=== PATIENT | male | born 1985 | race Caucasian/White ===

== ENCOUNTER 2017-11-26 15:25 | Emergency (ER) | payer BC, OTHER ==
[~2017-11-26] VITALS: Ht 172.7 cm; Wt 68.0 kg
--- OUTSIDE RECORDS SUMMARY | 2017-11-26 15:30 | XMS REPORT ---
Author REJI Del [facility]ario [facility] Address [address] [place], [place] [address] Care Team Providers Care Motor Vehicle Examiner Name Role Phone REJI PALACIOS PCP Unavailable Allergies and Adverse Reactions Name Reaction Notes NO KNOWN DRUG ALLERGIES Plan of Treatment Planned Activity Comments Planned Date Planned Time Plan/Goal Injection, Subcutaneous/IM 04/24/2016 12:00 AM Medications Active Name Start Date Estimated Completion Date SIG Comments Cipro 500 mg oral tablet 11/07/2012 take 1 tablet (500 mg) by oral route 2 times per day promethazine-codeine 6.25-10 mg/5 mL oral syrup 04/25/2016 take 5 milliliters by oral route every 4 hours as needed, not to exceed 30 mL in 24 hours Problem List Description Status Onset NO SIGNIFICANT MEDICAL HX GIVEN Active Vital Signs Date Time BP-Sys(mm[Hg] BP-America(mm[Hg]) HR(bpm) RR(rpm) Temp WT HT HC BMI BSA BMI Percentile O2 Sat(%) 04/24/2016 10:50:00 AM 118 mmHg 60 mmHg 64 bpm 16 rpm 98.2 F 146 lbs 68 in 22.20 kg/m2 1.78 m2 99 % 11/07/2012 10:19:00 AM 122 mmHg 68 mmHg 88 bpm 16 rpm 98.2 F 150 lbs 68 in 22.8072 kg/m 1.8068 m 98 % 11/19/2011 9:13:00 AM 120 mmHg 60 mmHg 76 bpm 151 lbs 68 in 22.96 kg/m2 1.81 m2 04/02/2011 10:29:00 AM 112 mmHg 70 mmHg 84 bpm 152 lbs 68 in 23.1113 kg/m 1.8188 m Social History Name Description Comments Tobacco Never smoker History of Procedures Date Ordered Description Order Status 04/02/2011 12:00 AM THER/PROPH/DIAG INJ SC/IM Reviewed 04/02/2011 12:00 AM Decadron Inj.1mg-([facility]) [facility] #[id number] Reviewed 04/02/2011 12:00 AM Depo-Medrol 80 Mg Im/St Trevon [facility] [id number] Reviewed 04/02/2011 12:00 AM Rocephin, Per 250MG - 1 Gram Vial [facility] [id number] Trevon Reviewed 11/07/2012 12:00 AM THER/PROPH/DIAG INJ SC/IM Reviewed 11/07/2012 12:00 AM Decadron, Per 1 Mg [facility]# [id number] Reviewed 11/07/2012 12:00 AM Depo-Medrol, Per 80 Mg [facility]#[id number] Reviewed 11/07/2012 12:00 AM Rocephin 1 gram [facility]#[id number] Reviewed Results Summary Not available. History Of Immunizations Not available. History of Past Illness Name Date of Onset Comments NO SIGNIFICANT MEDICAL HX GIVEN Cough Apr 02 2011 10:31AM Bronchitis, Acute Apr 02 2011 10:31AM Follow-Up Examination Nov 19 2011 9:17AM Late effect of fracture of skull and face bones Nov 19 2011 9:17AM Cough Nov 07 2012 10:22AM Pharyngitis, Acute Nov 07 2012 10:22AM Upper Respiratory Infection Nov 07 2012 10:22AM Moderate Acute Cough Apr 24 2016 10:51AM Acute bronchitis, unspecified organism Apr 24 2016 10:51AM Moderate Acute Chest congestion Apr 24 2016 10:51AM Payers Insurance Name Company Name Plan Name Plan Number Policy Number Policy Group Number Start Date BCBS [facility] [id number] N/A [employer] [id number] N/A History of Encounters Visit Date Visit Type Provider 04/24/2016 Office visit REJI HART 11/07/2012 Office visit REJI HART 11/19/2011 Office visit REJI HART 04/02/2011 Office visit REJI HART 03/04/2009 Office visit Reji Palacios PA-C 03/01/2009 Office visit Reji Palacios PA-C
--- OUTSIDE RECORDS SUMMARY | 2017-11-26 15:30 | XMS REPORT ---
Author Author REJI RODRÍGUEZ [facility] Address [address] [place], [place] [address] Care Team Providers Care Senior Qa Analyst Name Role Phone REJI RODRÍGUEZ PCP REJI RODRÍGUEZ PreferredProvider Allergies and Adverse Reactions Name Reaction Notes NO KNOWN DRUG ALLERGIES Plan of Treatment Planned Activity Comments Planned Date Planned Time Plan/Goal Injection, Subcutaneous/IM 11/09/2017 12:00 AM Medications Active Name Start Date Estimated Completion Date SIG Comments fluticasone 50 mcg/actuation nasal spray,suspension 03/19/2017 spray 1 - 2 sprays (50 - 100 mcg) in each nostril by intranasal route once daily as needed promethazine-codeine 6.25-10 mg/5 mL oral syrup 06/14/2017 take 5 milliliters by oral route every 4 hours as needed, not to exceed 30 mL in 24 hours Bactrim DS 800-160 mg oral tablet 11/09/2017 12/09/2017 take 1 tablet by oral route 2 times a day for 30 days prednisone 20 mg oral tablet 11/09/2017 4 x 2 days, 3 x 2 days, 2 x 2 days 1 x 2 days Discontinued Name Start Date Discontinued Date SIG Comments Cipro 500 mg oral tablet 11/07/2012 03/22/2017 take 1 tablet (500 mg) by oral route 2 times per day triamcinolone acetonide 0.1 % topical cream 03/19/2017 06/15/2017 apply a thin layer to the affected area(s) by topical route 2 times per day Problem List Description Status Onset NO SIGNIFICANT MEDICAL HX GIVEN Active Vital Signs Date Time BP-Sys(mm[Hg] BP-America(mm[Hg]) HR(bpm) RR(rpm) Temp WT HT HC BMI BSA BMI Percentile O2 Sat(%) 11/09/2017 3:44:00 PM 118 mmHg 64 mmHg 88 bpm 18 rpm 97.4 F 151 lbs 68 in 22.9592 kg/m 1.8128 m 98 % 06/14/2017 4:21:00 PM 102 mmHg 70 mmHg 86 bpm 18 rpm 98.7 F 155 lbs 68 in 23.57 kg/m2 1.84 m2 96 % 03/18/2017 3:24:00 PM 118 mmHg 60 mmHg 104 bpm 16 rpm 98.4 F 152 lbs 68 in 23.11 kg/m2 1.82 m2 96 % 04/24/2016 10:50:00 AM 118 mmHg 60 mmHg 64 bpm 16 rpm 98.2 F 146 lbs 68 in 22.199 kg/m 1.7825 m 99 % 11/07/2012 10:19:00 AM 122 mmHg 68 mmHg 88 bpm 16 rpm 98.2 F 150 lbs 68 in 22.81 kg/m2 1.81 m2 98 % 11/19/2011 9:13:00 AM 120 mmHg 60 mmHg 76 bpm 151 lbs 68 in 22.9592 kg/m 1.8128 m 04/02/2011 10:29:00 AM 112 mmHg 70 mmHg 84 bpm 152 lbs 68 in 23.11 kg/m2 1.82 m2 Social History Name Description Comments Tobacco Never smoker History of Procedures Date Ordered Description Order Status 04/02/2011 12:00 AM THER/PROPH/DIAG INJ SC/IM Reviewed 04/02/2011 12:00 AM Decadron Inj.1mg-(JosuéTrevon) [facility] #[id number] Reviewed 04/02/2011 12:00 AM Depo-Medrol 80 Mg Im/ Trevon [facility] [id number] Reviewed 04/02/2011 12:00 AM Rocephin, Per 250MG - 1 Gram Vial [facility] [id number] Paul Reviewed 04/24/2016 12:00 AM THER/PROPH/DIAG INJ SC/IM Reviewed 04/24/2016 12:00 AM Decadron 8mg Injection Reviewed 04/24/2016 12:00 AM Depo-Medrol 80mg Injection Reviewed 04/24/2016 12:00 AM Rocephin 1 gram Injection Reviewed 03/18/2017 12:00 AM THER/PROPH/DIAG INJ SC/IM Reviewed 03/18/2017 12:00 AM Decadron 8mg Injection Reviewed 03/18/2017 12:00 AM Depo-Medrol 80mg Injection Reviewed 06/14/2017 12:00 AM THER/PROPH/DIAG INJ SC/IM Reviewed 06/14/2017 12:00 AM Decadron 8mg Injection Reviewed 06/14/2017 12:00 AM Depo-Medrol 80mg Injection Reviewed 11/07/2012 12:00 AM THER/PROPH/DIAG INJ SC/IM Reviewed 11/07/2012 12:00 AM Decadron, Per 1 Mg [facility]# [id number] Reviewed 11/07/2012 12:00 AM Depo-Medrol, Per 80 Mg [facility]#[id number] Reviewed 11/07/2012 12:00 AM Rocephin 1 gram [facility]#[id number] Reviewed Results Summary Not available. History Of [...] Acute Chest congestion Apr 24 2016 10:51AM Acute pharyngitis, unspecified etiology Mar 18 2017 3:25PM Purulent postnasal drainage Mar 18 2017 3:25PM Sinus pressure Mar 18 2017 3:25PM Acute seasonal allergic rhinitis, unspecified trigger Mar 18 2017 3:25PM Cough Jun 14 2017 4:21PM Chest congestion Jun 14 2017 4:21PM Upper respiratory tract infection, unspecified type Jun 14 2017 4:21PM Moderate Acute Pityriasis Rosea Jun 14 2017 4:21PM Purulent postnasal drainage Nov 09 2017 3:45PM Severe Chronic Recurrent Sinus pressure Nov 09 2017 3:45PM Acute seasonal allergic rhinitis, unspecified trigger Nov 09 2017 3:45PM Acute recurrent sinusitis, unspecified location Nov 09 2017 3:45PM Sinus headache Nov 09 2017 3:45PM Payers Insurance Name Company Name Plan Name Plan Number Policy Number Policy Group Number Start Date BCBS [facility] [id number] Tuesday, 2016 [employer] [id number] N/A BCBS [facility] [id number] N/A History of Encounters Visit Date Visit Type Provider 11/09/2017 Office visit REJI HART 06/14/2017 Voided REJI HART 06/14/2017 Office visit REJI HART 03/18/2017 Office visit REJI HART 04/24/2016 Office visit REJI HART 11/07/2012 Office visit REJI HART 11/19/2011 Office visit REJI HART 04/02/2011 Office visit REJI HART 03/04/2009 Office visit Reji Rodríguez PA-C 03/01/2009 Office visit Reji Rodríguez PA-C
--- OUTSIDE RECORDS SUMMARY | 2017-11-26 15:30 | XMS REPORT ---
Author Author REJI RODRÍGUEZ [facility] Address [address] [place], [place] [address] Care Team Providers Care Photostatic Copy Maker Name Role Phone REJI RODRÍGUEZ PCP Allergies and Adverse Reactions Name Reaction Notes NO KNOWN DRUG ALLERGIES Plan of Treatment Not available. Medications Active Name Start Date Estimated Completion Date SIG Comments promethazine-codeine 6.25-10 mg/5 mL oral syrup 04/25/2016 take 5 milliliters by oral route every 4 hours as needed, not to exceed 30 mL in 24 hours prednisone 20 mg oral tablet 03/19/2017 4 x 2 days, 3 x 2 days, 2 x 2 days 1 x 2 days fluticasone 50 mcg/actuation nasal spray,suspension 03/19/2017 spray 1 - 2 sprays (50 - 100 mcg) in each nostril by intranasal route once daily as needed triamcinolone acetonide 0.1 % topical cream 03/19/2017 apply a thin layer to the affected area(s) by topical route 2 times per day Discontinued Name Start Date Discontinued Date SIG Comments Cipro 500 mg oral tablet 11/07/2012 03/22/2017 take 1 tablet (500 mg) by oral route 2 times per day Problem List Description Status Onset NO SIGNIFICANT MEDICAL HX GIVEN Active Vital Signs Date Time BP-Sys(mm[Hg] BP-America(mm[Hg]) HR(bpm) RR(rpm) Temp WT HT HC BMI BSA BMI Percentile O2 Sat(%) 03/18/2017 3:24:00 PM 118 mmHg 60 mmHg [...] SC/IM Reviewed 04/02/2011 12:00 AM Decadron Inj.1mg-([facility]) [facility] #[id number] Reviewed 04/02/2011 12:00 AM Depo-Medrol 80 Mg Im/St Trevon [facility] [id number] Reviewed 04/02/2011 12:00 AM Rocephin, Per 250MG - 1 Gram Vial [facility] [id number]-Hn Paul Reviewed 04/24/2016 12:00 AM THER/PROPH/DIAG INJ SC/IM Reviewed 04/24/2016 12:00 AM Decadron 8mg Injection Reviewed 04/24/2016 12:00 AM Depo-Medrol 80mg Injection Reviewed 04/24/2016 12:00 AM Rocephin 1 gram Injection Reviewed 03/18/2017 12:00 AM THER/PROPH/DIAG INJ SC/IM Reviewed 03/18/2017 12:00 AM Decadron 8mg Injection Reviewed 03/18/2017 12:00 AM Depo-Medrol 80mg Injection Reviewed 11/07/2012 12:00 AM THER/PROPH/DIAG INJ SC/IM Reviewed 11/07/2012 12:00 AM Decadron, Per 1 Mg [facility]# [id number] Reviewed 11/07/2012 12:00 AM Depo-Medrol, Per 80 Mg [facility]#[id number] Reviewed 11/07/2012 12:00 AM Rocephin 1 gram [facility]#[id number] Reviewed Results Summary Not available. History Of [...] rhinitis, unspecified trigger Mar 18 2017 3:25PM Payers Insurance Name Company Name Plan Name Plan Number Policy Number Policy Group Number [id number] Tuesday, 2016 [employer] [id number] N/A [facility] [id number] N/A History of Encounters Visit Date Visit Type Provider 03/18/2017 Office visit REJI HART 04/24/2016 Office visit REJI HART 11/07/2012 Office visit REJI HART 11/19/2011 Office visit REJI HART 04/02/2011 Office visit REJI HART 03/04/2009 Office visit Reji Rodríguez PA-C 03/01/2009 Office visit Reji Rodríguez PA-C
--- OUTSIDE RECORDS SUMMARY | 2017-11-26 15:30 | XMS REPORT ---
Author Author REJI RODRÍGUEZ [facility] Address [address] [place], [place] [address] Care Team Providers Care Interactive Project Manager Name Role Phone REJI RODRÍGUEZ PCP REJI RODRÍGUEZ PreferredProvider Allergies and Adverse Reactions Name Reaction Notes NO KNOWN DRUG ALLERGIES Plan of Treatment Not available. Medications Active Name Start Date Estimated Completion Date SIG Comments fluticasone 50 mcg/actuation nasal spray,suspension 03/19/2017 spray 1 - 2 sprays (50 - 100 mcg) in each nostril by intranasal route once daily as needed prednisone 20 mg oral tablet 06/14/2017 4 x 2 days, 3 x 2 days, 2 x 2 days 1 x 2 days promethazine-codeine 6.25-10 mg/5 mL oral syrup 06/14/2017 take 5 milliliters by oral route every 4 hours as needed, not to exceed 30 mL in 24 hours Discontinued Name Start Date Discontinued Date SIG [...] HC BMI BSA BMI Percentile O2 Sat(%) 06/14/2017 4:21:00 PM 102 mmHg 70 mmHg 86 bpm 18 rpm 98.7 F 155 lbs 68 in 23.57 kg/m2 1.84 m2 96 % 03/18/2017 3:24:00 PM 118 mmHg 60 mmHg 104 bpm 16 rpm 98.4 F 152 lbs 68 in 23.1113 kg/m 1.8188 m 96 % 04/24/2016 10:50:00 AM 118 mmHg [...] SC/IM Reviewed 04/02/2011 12:00 AM Decadron Inj.1mg-([facility]) [facility] #[id number] Reviewed 04/02/2011 12:00 AM Depo-Medrol 80 Mg Im/St Trevon [facility] [id number] Reviewed 04/02/2011 12:00 AM Rocephin, Per 250MG - 1 Gram Vial [facility] [id number]-Dm Paul Reviewed 04/24/2016 12:00 AM THER/PROPH/DIAG INJ [...] 11/07/2012 12:00 AM Decadron, Per 1 Mg [facility]# [id number] Reviewed 11/07/2012 12:00 AM Depo-Medrol, Per 80 Mg [facility]#[id number] Reviewed 11/07/2012 12:00 AM Rocephin 1 gram [facility]#4146-1487-92 Reviewed Results Summary Not available. History Of [...] Acute Pityriasis Rosea Jun 14 2017 4:21PM Payers Insurance Name Company Name Plan Name Plan Number Policy Number Policy Group Number Start Date BCBS [facility] [id number] Tuesday, 2016 [employer] [id number] N/A BCBS [facility] [id number] N/A History of Encounters Visit Date Visit Type Provider 06/14/2017 Office visit REJI HART 06/14/2017 Office visit REJI HART 03/18/2017 Office visit REJI HART 04/24/2016 Office visit REJI HART 11/07/2012 Office visit REJI HART 11/19/2011 Office visit REJI HART 04/02/2011 Office visit REJI HART 03/04/2009 Office visit Reji Rodríguez PA-C 03/01/2009 Office visit Reji Rodríguez PA-C
--- OUTSIDE RECORDS SUMMARY | 2017-11-26 15:31 | XMS REPORT ---
Author Author MICKEY SOW [facility] Address [address] [place] [address] Phone Unavailable Care Team Providers Care Senior Infrastructure Engineer Name Role Phone MICKEY SOW Unavailable Unavailable PROBLEMS Unknown Problems ALLERGIES No Known Allergies ENCOUNTERS Encounter Location Date Diagnosis [facility] [address] [facility] [id number] [address] 17 May, 2017 Cough R05 ; Viral upper respiratory tract infection J06.9 and Rash R21 IMMUNIZATIONS Vaccine Route Administration Date Status DEXAMETHASONE 4MG/ML (PER 1 MG) IM Intramuscular Jun 05, 2017 Administered DEPO MEDROL 40 MG/ML IM Intramuscular Jun 05, 2017 Administered SOCIAL HISTORY Never Assessed REASON FOR VISIT Sinus congestion, runny nose, dry cough for several weeks. Rash on torso and arms x3 days. [facility] PLAN OF CARE Activity Details Follow Up prn cough and congestion Reason: VITAL SIGNS Height 68 in 2017-06-05 Weight 155 lbs 2017-06-05 Temperature 98.2 degrees Fahrenheit 2017-06-05 Heart Rate 70 bpm 2017-06-05 Respiratory Rate 20 2017-06-05 BMI 23.57 kg/m2 2017-06-05 Blood pressure systolic 110 mmHg 2017-06-05 Blood pressure diastolic 76 mmHg 2017-06-05 MEDICATIONS Medication Instructions Dosage Frequency Start Date End Date Duration Status Promethazine-DM 6.25-15 MG/5ML Orally as directed 5 ml at HS May, May, 07 days Active Flonase Active Robitussin 12 Hour Cough Active Excedrin Migraine Active RESULTS Name Result Date Reference Range STREP A (IN HOUSE) 2017-06-05 STREP A negative Control + Lot # [id number] Exp date 01/16/2018 Xray : Chest 2 View (IN HOUSE) 2017-06-05 PROCEDURES Procedure Date Ordered Result Body Site X-RAY EXAM CHEST 2 VIEWS Jun 05, 2017 THER/PROPH/DIAG INJ, SC/IM Jun 05, 2017 DEPO MEDROL 40 MG/ML Jun 05, 2017 STREP A ASSAY W/OPTIC Jun 05, 2017 DEXAMETHASONE 4MG/ML (PER 1 MG) Jun 05, 2017 INSTRUCTIONS MEDICATIONS ADMINISTERED No Known Medications
--- OUTSIDE RECORDS SUMMARY | 2017-11-26 15:31 | XMS REPORT | Continuity of Care Document ---
Author Author [facility] Organization [facility] Address Unknown Phone Unavailable Allergies There is no data. Medications There is no data. Problems There is no data. Procedures There is no data. Results There is no data. Encounters ACCT No. Visit Date/Time Discharge Status Pt. Type Provider Facility Loc./Unit Complaint [id number] 11/09/2017 14:44:38 11/09/2017 23:59:59 [facility] Outpatient DENIA PALACIOS [id number] 06/14/2017 14:35:04 06/14/2017 23:59:59 [facility] Outpatient DENIA PALACIOS [id number] 06/14/2017 14:28:18 06/14/2017 23:59:59 [facility] Out[facility] DENIA PALACIOS [id number] 03/18/2017 14:28:17 03/18/2017 23:59:59 [facility] Outpatient DENIA PALACIOS [id number] 04/24/2016 10:21:38 04/24/2016 23:59:59 [facility] Outpatient DENIA PALACIOS [id number] 06/05/2017 11:25:00 06/05/2017 23:59:59 [facility] Outpatient BRUCE CHAND ABIGAIL[employer]ftab [facility]
[2017-11-26] MEDS ORDERED: ACETAMINOPHEN 500 MG TAB (TYLENOL) PO ONE (15:45)
[2017-11-26] MEDS ORDERED: NS IV 1000 ML 1,000 ML IV SCH (15:45)
--- NOTE | 2017-11-26 15:52 | ED General ---
General Stated Complaint: RASH/COUGH/BODY ACHES Source of Information: Patient Exam Limitations: No Limitations History of Present Illness Date Seen by Provider: Nov 26, 2017 Time Seen by Provider: 15:43 Initial Comments Patient is a 32-year-old male presents to the emergency room with complaints of generalized body aches, fevers, cough, and a rash all over his body for one week. He reports that he has been seen by urgent care in [place], [place] yesterday and they advised him to go to the emergency room in [place] but he lives closer to the [facility] and decided to come home and go today. He has recently been seen by Esteban Rodríguez in [employer] and recently just finished a prescription for Bactrim and prednisone for an upper respiratory infection. He reports that he's also had numerous tick bites this summer. Timing/Duration: 6-7 Days, 1 Week Associated Systoms: No Chest Pain; Cough, Fever/Chills, Headaches, Loss of Appetite, Malaise, Rash; No Seizure, No Shortness of Air, No Syncope Allergies and Home Medications Allergies Coded Allergies: No Known Drug Allergies (Unverified , 11/26/17) Home Medications Benzonatate 100 Mg Capsule, 100 MG PO TID PRN for COUGH Prescribed by: ARACELY BENÍTEZ on 11/26/171826 Doxycycline Hyclate 100 Mg Capsule, 100 MG PO BID Prescribed by: ARACELY BENÍTEZ on 11/26/171815 Prednisone 20 Mg Tab, 40 MG PO DAILY Prescribed by: ARACELY BENÍTEZ on 11/26/171815 Patient Home Medication List Home Medication List Reviewed: Yes Review of Systems Constitutional: see HPI, chills, fever, malaise EENTM: see HPI, throat pain; No throat swelling Respiratory: see HPI, cough, phlegm Musculoskeletal: see HPI, muscle pain, muscle weakness, other Skin: see HPI (generalized body aches), rash All Other Systems Reviewed Negative Unless Noted: Yes Past Wpkcqns-Vvvpzh-Ofjven Hx Past Med/Social Hx: Reviewed Nursing Past Med/Soc Hx Patient Social History Recent Foreign Travel: No Contact w/Someone Who Travel: No Family Medical History Reviewed Nursing Family Hx Physical Exam Vital Signs Vital Signs - First Documented 11/26/17 11/26/17 15:30 18:29 Temp 102.7 Pulse 103 Resp 22 B/P (MAP) 108/66 (80) Pulse Ox 94 O2 Delivery Room Air Capillary Refill : Height, Weight, BMI Height: '" Weight: lbs. oz. kg; BMI Method: General Appearance: No Apparent Distress, WD/WN HEENT: PERRL/EOMI, TMs Normal, Normal ENT Inspection, Pharynx Normal Neck: Full Range of Motion, Normal Inspection, Non Tender, Supple Respiratory: Chest Non Tender, Lungs Clear, Normal Breath Sounds, No Accessory Muscle Use, No Respiratory Distress Gastrointestinal: Normal Bowel Sounds, No Organomegaly, No Pulsatile Mass, Non Tender, Soft Neurologic/Psychiatric: Alert, Oriented x3, No Motor/Sensory Deficits Skin: Warm/Dry, Rash (fine macular rash all of body. ) Lymphatic: No Adenopathy Focused Exam Lactate Level 11/26/17 15:45: Lactic Acid Level 1.58 Lactic Acid Level Progress/Results/Core Measures Suspected Sepsis SIRS Temperature: Pulse: Respiratory Rate: Laboratory Tests 11/26/17 15:45: White Blood Count 2.5L Blood Pressure / Mean: 11/26/17 15:45: Lactic Acid Level 1.58 Laboratory Tests 11/26/17 15:45: Creatinine 0.81, INR Comment 1.1, Platelet Count 48L, Total Bilirubin 0.6 Results/Orders Lab Results My Orders Orders - ARACELY BENÍTEZ Urine Culture (11/26/17 15:40) Medications Given in ED Vital Signs/I&O Capillary Refill : Progress Note : Progress Note I have seen and evaluated the patient. I have informed him of laboratory and imaging studies. With the patient frequent tick bites this summer I feel that this could be a tick born illness. Viral illness also can not be excluded. He agrees with plans of care, close follow up with PCP, and return precautions. Diagnostic Imaging Diagonstic Imaging: Xray Plain Films/CT/US/NM/MRI: chest Comments NAME: TANYA MON MED REC#: [id number] PT STATUS: REG ER : 1985 PHYSICIAN: ARACELY BENÍTEZ ADMIT DATE: 11/26/17/ER Signed Date of Exam: 11/26/17 CHEST 1 VIEW, AP/PA ONLY Clinical indication: Patient with rash, cough, body aches. Exam: Portable chest x-ray upright view. Comparisons: None. Findings: Lungs/pleura: Lungs are clear. There is no pneumothorax. There is no pleural effusion. Mediastinum: Unremarkable. Pulmonary vasculature: Unremarkable. Heart: Unremarkable. Bones/extrathoracic soft tissue: Unremarkable. Impression: There is no radiographic evidence of acute cardiopulmonary process. Dictated by: Dictated on workstation # [id number] Dict: 11/26/17 1631 Trans: 11/26/171706 Interpreted by: BRE MALONE MD Electronically signed by: BRE MALONE MD 11/26/171706 Reviewed: Reviewed by Me Departure Impression Primary Impression: Tick-borne disease Additional Impression: Viral illness Disposition: HOME, SELF-CARE Condition: Stable/Unchanged Departure-Patient Inst. Decision time for Depature: 18:07 Referrals: UNKNOWN (PCP/Family) Primary Care Physician Patient Instructions: VIRAL RESP ILLNESS-ADULT Add. Discharge Instructions: Take medication as directed. You may take ibuprofen as directed by the bottle for fever. If you are unable to break the fever you may add Tylenol as directed by the bottle. Follow-up with Esteban Rodríguez within 1 week for recheck. Avoid direct sunlight as you will burn on this medication. Return back to the emergency room for any worsening symptoms, fever, pain, or any other concerns as needed. Scripts Benzonatate (Tessalon Perle) 100 Mg Capsule 100 MG PO TID PRN for COUGH, #10 CAP Prov: ARACELY BENÍTEZ 11/26/17 Doxycycline Hyclate (Doxycycline Hyclate) 100 Mg Capsule 100 MG PO BID for 10 Days, #14 CAP Prov: ARACELY BENÍTEZ 11/26/17 Prednisone (Prednisone) 20 Mg Tab 40 MG PO DAILY for 5 Days, #10 TAB Prov: ARACELY BENÍTEZ 11/26/17 ARACELY BENÍTEZ Nov 26, 2017 15:52
[2017-11-26 16:05] LABS: BASOPHILS % (AUTO) 1 % (0-10); EOSINOPHILS % (AUTO) 2 % (0-10); HEMATOCRIT 42 % (40-54); HEMOGLOBIN 14.7 G/DL (13.3-17.7); LYMPHOCYTES # (AUTO) 0.7 X 10^3 (1.0-4.0); LYMPHOCYTES % (AUTO) 30 % (12-44); MEAN CORPUSCULAR HEMOGLOBIN 31 PG (25-34); MEAN CORPUSCULAR HGB CONC 35 G/DL (32-36); MEAN CORPUSCULAR VOLUME 88 FL (80-99); MEAN PLATELET VOLUME 12.9 FL (7.4-10.4); MONOCYTES # (AUTO) 0.2 X 10^3 (0.0-1.0); MONOCYTES % (AUTO) 9 % (0-12); NEUTROPHILS # (AUTO) 1.5 X 10^3 (1.8-7.8); NEUTROPHILS % (AUTO) 59 % (42-75); PLATELET COUNT 48 10^3/uL (130-400); RED BLOOD COUNT 4.75 10^6/uL (4.35-5.85); RED CELL DISTRIBUTION WIDTH 12.8 % (10.0-14.5); WHITE BLOOD COUNT 2.5 10^3/uL (4.3-11.0)
[2017-11-26 16:10] LABS: CLARITY,URINE CLEAR; COLOR,URINE YELLOW; GLUCOSE, URINE (UA) NEGATIVE (NEGATIVE); KETONES,URINE NEGATIVE (NEGATIVE); LEUKOCYTE ESTERASE ,URINE 1+ (NEGATIVE); NITRITE,URINE NEGATIVE (NEGATIVE); PH,URINE 6 (5-9); PROTEIN,URINE 2+ (NEGATIVE); UROBILINOGEN,URINE 8 MG/DL (NORMAL)
[2017-11-26 16:26] LABS: ALANINE AMINOTRANSFERASE 199 U/L (0-55); ALBUMIN 3.8 GM/DL (3.2-4.5); ALKALINE PHOSPHATASE 79 U/L (40-136); BILIRUBIN,TOTAL 0.6 MG/DL (0.1-1.0); BUN/CREATININE RATIO 17; CALCIUM 8.6 MG/DL (8.5-10.1); CARBON DIOXIDE 26 MMOL/L (21-32); CHLORIDE 98 MMOL/L (98-107); CREATININE SERUM 0.81 MG/DL (0.60-1.30); GFR ESTIMATED > 60; GLUCOSE 110 MG/DL (70-105); POTASSIUM 3.9 MMOL/L (3.6-5.0); SODIUM 134 MMOL/L (135-145); TOTAL PROTEIN 6.6 GM/DL (6.4-8.2)
[2017-11-26 16:30] LABS: BACTERIA,URINE NEGATIVE /HPF; BILIRUBIN,URINE 1+ (NEGATIVE); RBC,URINE 0-2 /HPF; WBC,URINE RARE /HPF
[2017-11-26 16:31] LABS: INR 1.1 (0.8-1.4); PROTHROMBIN TIME PATIENT 14.6 SEC (12.2-14.7)
--- NOTE | 2017-11-26 16:35 | Diagnostic Imaging Report ---
Clinical indication: Patient with rash, cough, body aches. Exam: Portable chest x-ray upright view. Comparisons: None. Findings: Lungs/pleura: Lungs are clear. There is no pneumothorax. There is no pleural effusion. Mediastinum: Unremarkable. Pulmonary vasculature: Unremarkable. Heart: Unremarkable. Bones/extrathoracic soft tissue: Unremarkable. Impression: There is no radiographic evidence of acute cardiopulmonary process. Dictated by: Dictated on workstation # [id number]
[2017-11-26] MEDS ORDERED: IBUPROFEN 800 MG (MOTRIN) TAB PO ONE (17:30)
[2017-11-26] MEDS ORDERED: PRD20T PO (18:16)
[2017-11-26] MEDS ORDERED: DOXY100C2 PO (18:16)
[2017-11-26] MEDS ORDERED: BENZ-13 PO (18:27)
[2017-11-26 18:29] VITALS: BP 97/57
== END 2017-11-26 18:29 | disposition home or self-care (01) ==
LOC: ER 15:26
DX: A68.1 Tick-borne relapsing fever (principal); B34.9 Viral infection, unspecified; Z79.52 Long term (current) use of systemic steroids
CPT/HCPCS: 36415; 71045; 80053; 81000; 83605; 85025; 85610; 85730; 86618; 86666; 86668; 86757; 87040; 87070; 87088; 87205; 87430; 96360

== ENCOUNTER → 2018-05-10 | Outpatient (CLI) | payer BC ==
[~2018-05-10] MED LIST: BENZ100C18 PO; DOXY100C2 PO; PRD20T PO
--- NOTE | 2018-05-10 09:40 | Diagnostic Imaging Report ---
PROCEDURE: CT sinuses without contrast TECHNIQUE: Multiple contiguous axial images were obtained through the sinuses without the use of intravenous contrast. Coronal and sagittal reformations were then performed. INDICATION: Chronic sinusitis. FINDINGS: There is marked soft tissue opacification of the majority of the bilateral maxillary sinuses. There is some pneumatized portions superiorly. Likely prior surgery changes of bilateral maxillary sinus antrectomies. Soft tissue density including at the level of the ostiomeatal complex is present. There is rather significant opacification of the majority of the ethmoid air cells. This appears fairly symmetric between the right and left sides. The frontal sinuses are hypoplastic with the small frontal sinuses significantly opacified greatest on the left. Some bony destruction at the floor of the frontal sinus is suspect. There is trace mucosal thickening of the sphenoid sinus. It is noted that the soft tissue opacification particularly the maxillary sinuses and ethmoid air cells is of increased density and can reflect an underlying fungal type infection. Mild rightward nasal septal bowing. There is moderate mucosal thickening of the superior margins of the nasal cavity. The visualized mastoid air cells, external auditory canals and middle ear cavities are clear. IMPRESSION: 1. Extensive pansinusitis. There is near-complete opacification of the bilateral maxillary sinuses as well as majority of the ethmoid air cells. High density components could be reflective of an underlying fungal type infection. Dictated by: Dictated on workstation # [id number]
== END ==
LOC: RAD 07:25
PROVIDERS: ATTEND Otolaryngology Otolaryngology/Facial Plastic Surgery
DX: J32.4 Chronic pansinusitis (principal)
CPT/HCPCS: 70486

== ENCOUNTER 2018-06-13 05:34 | Outpatient (CLI) | payer BC ==
[~2018-06-13] VITALS: Ht 172.7 cm; Wt 68.0 kg
[2018-06-13] MEDS ORDERED: ASPI-789 PO (12:21)
[2018-06-13] MEDS ORDERED: RT-ALBUINH IH (12:21)
== END 2018-06-13 12:33 ==
LOC: PREOP 05:34
PROVIDERS: ATTEND Otolaryngology Otolaryngology/Facial Plastic Surgery
DX: Z01.818 Encounter for other preprocedural examination (principal)

== ENCOUNTER 2018-06-17 05:45 | Day surgery (SDC) | payer BC ==
[~2018-06-17] VITALS: Ht 172.7 cm; Wt 61.3 kg
[~2018-06-17 05:45] MED LIST changes: +ASPI-789 PO; +RT-ALBUINH IH
[2018-06-17] MEDS ORDERED: LACTATED RINGERS 1,000 ML IV PRN (06:12)
[2018-06-17] MEDS ORDERED: HYDROCORTISONE 100 MG/2 ML (Solu-CORTEF) VIAL IV ONE (06:15)
[2018-06-17] MEDS ORDERED: AMPICILLIN/SULBACTAM INJECTION 1.5 GM in NS (IVPB) 100 ML IV ONE (06:15)
[2018-06-17 06:20] VITALS: BP 112/71
[2018-06-17] MEDS ORDERED: CATHETER FLUSH 10 ML SYR IV PRN (06:30)
[2018-06-17 06:34] LABS: BASOPHILS # (AUTO) 0.1 10^3/uL (0.0-0.1); BASOPHILS % (AUTO) 1 % (0-10); EOSINOPHILS # (AUTO) 1.5 10^3/uL (0.0-0.3); EOSINOPHILS % (AUTO) 20 % (0-10); HEMATOCRIT 46 % (40-54); HEMOGLOBIN 15.9 G/DL (13.3-17.7); LYMPHOCYTES # (AUTO) 3.3 X 10^3 (1.0-4.0); LYMPHOCYTES % (AUTO) 43 % (12-44); MEAN CORPUSCULAR HEMOGLOBIN 31 PG (25-34); MEAN CORPUSCULAR HGB CONC 35 G/DL (32-36); MEAN CORPUSCULAR VOLUME 89 FL (80-99); MEAN PLATELET VOLUME 11.2 FL (7.4-10.4); MONOCYTES # (AUTO) 0.6 X 10^3 (0.0-1.0); MONOCYTES % (AUTO) 7 % (0-12); NEUTROPHILS # (AUTO) 2.3 X 10^3 (1.8-7.8); NEUTROPHILS % (AUTO) 30 % (42-75); PLATELET COUNT 191 10^3/uL (130-400); RED CELL DISTRIBUTION WIDTH 12.7 % (10.0-14.5); WHITE BLOOD COUNT 7.8 10^3/uL (4.3-11.0)
[2018-06-17] MEDS ORDERED: BSS 15 ML ONE (06:46)
[2018-06-17] MEDS ORDERED: COCAINE HCL 4% 2 ML SYR ONE (06:46)
[2018-06-17] MEDS ORDERED: PHENYLEPHRINE 0.5% NASAL SPR (NEO-SYNEPHRINE) REG ONE (06:47)
[2018-06-17] MEDS ORDERED: LIDOCAINE/EPI 1%-1:100,000 (XYLOCAINE) 20ML ONE (06:47)
[2018-06-17] MEDS ORDERED: fentaNYL INJECTION 100 MCG/2 ML AMP ONE (06:55)
[2018-06-17] MEDS ORDERED: MIDAZOLAM 2 MG/2 ML (VERSED) VIAL ONE (06:55)
[2018-06-17 06:57] LABS: BUN/CREATININE RATIO 22; CALCIUM 9.8 MG/DL (8.5-10.1); CARBON DIOXIDE 28 MMOL/L (21-32); CHLORIDE 102 MMOL/L (98-107); CREATININE SERUM 0.86 MG/DL (0.60-1.30); GFR ESTIMATED > 60; GLUCOSE 84 MG/DL (70-105); POTASSIUM 3.7 MMOL/L (3.6-5.0); SODIUM 141 MMOL/L (135-145)
[2018-06-17] MEDS ORDERED: LIDOCAINE PF 2% 5 ML (XYLOCAINE) VIAL ONE (07:00)
[2018-06-17] MEDS ORDERED: ROCURONIUM 10 MG/ML 5 ML SYRINGE IV ONE (07:00)
[2018-06-17] MEDS ORDERED: SEVOFLURANE (ULTANE) 15 ML INHAL SOLN ONE ×6 (07:00→08:50)
[2018-06-17] MEDS ORDERED: ONDANSETRON 4 MG/2 ML (SDV) Z0FRAN ONE (07:00)
[2018-06-17] MEDS ORDERED: proPOfol 200 MG/20 ML (DIPRIVAN) VIAL IV ONE (07:00)
[2018-06-17] MEDS ORDERED: DEXAMETHASONE 10 MG/ML (DECADRON) 1 ML VIAL ONE (07:00)
--- NOTE | 2018-06-17 07:02 | Progress Note-Pre Operative ---
Pre-Operative Progress Note H&P Reviewed The H&P was reviewed, patient examined and no changes noted. Date Seen by Provider: Jun 17, 2018 Time Seen by Provider: 06:30 Date H&P Reviewed: Jun 17, 2018 Time H&P Reviewed: 06:30 Pre-Operative Diagnosis: Bilat Chronic Sinusitis, Deviated Septum, Bilat Hyper of Inf Turbs DENIA CALVILLO MD Jun 17, 2018 07:02
[2018-06-17] MEDS ORDERED: LIDOCAINE JELLY 2% 6 ML SYRINGE ONE (07:08)
[2018-06-17 07:24] LABS: EOSINOPHILS % (MANUAL) 13 %; LYMPHOCYTES % (MANUAL) 42 %; MONOCYTES % (MANUAL) 11 %; NEUTROPHILS % (MANUAL) 34 %
[2018-06-17] MEDS ORDERED: GLYCOPYRROLATE 0.2 MG/ML (ROBINUL) 2 ML VIAL ONE (08:47)
[2018-06-17] MEDS ORDERED: NEOSTIGMINE 1 MG/ML 5 ML SYRINGE ONE (08:47)
[2018-06-17] MEDS ORDERED: D5 1/2 NS W/KCL 20 MEQ/L 1,000 ML IV SCH (08:57)
--- NOTE | 2018-06-17 08:57 | Progress Note-Post Operative ---
Post-Operative Progess Note Surgeon (s)/Title I Paraprofessional (s) Surgeon DENIA CALVILLO MD Title I Paraprofessional n/a Pre-Operative Diagnosis Bilat Chronic Sinusitis, Deviated Septum, Bilat Hyper of Inf Turbs Post-Operative Diagnosis same Post-Op Procedure Note Date of Procedure: Jun 17, 2018 Name of Procedure Performed: Bilat ESS, Bilat Red of Inf Turbs Description & Findings Description and Findings: n/a Anesthesia Type get Estimated Blood Loss minimal Packing none. Specimen(s) collected/removed Bilat chornic sinus disesae and polyps DENIA CALVILLO MD Jun 17, 2018 08:57
[2018-06-17] MEDS ORDERED: RT-ALBUTEROL HFA (VENTOLIN) PER PUFF IH ONE (08:58)
[2018-06-17] MEDS ORDERED: predniSONE 20 MG TAB PO ONE (09:00)
[2018-06-17] MEDS ORDERED: HYDROcodone/APAP 5 MG/325 MG (LORTAB) TAB PO PRN (09:00)
[2018-06-17] MEDS ORDERED: ACETAMINOPHEN 325 MG TABLET PO PRN (09:00)
[2018-06-17] MEDS ORDERED: PROMETHAZINE INJ 25 MG/ML (PHENERGAN) AMP IVP PRN (09:00)
[2018-06-17] MEDS ORDERED: morphine INJ 10 MG/ML 1ML (SYR OR VIAL) ONE (09:09)
[2018-06-17] MEDS ORDERED: ONDANSETRON 4 MG/2 ML (SDV) Z0FRAN IVP PRN (09:15)
[2018-06-17] MEDS ORDERED: HYDROmorphone 2 MG/ML VIAL (DILAUDID) IV ONE (09:15)
[2018-06-17] MEDS ORDERED: morphine INJ 10 MG/ML 1ML (SYR OR VIAL) IVP ONE (09:15)
[2018-06-17 09:55] VITALS: BP 107/67
[2018-06-17] MEDS ORDERED: HYDR-3870 PO (10:13)
[2018-06-17] MEDS ORDERED: AMOX-355 PO (10:13)
[2018-06-17] MEDS ORDERED: PRD20T PO (10:13)
[2018-06-17 10:22] VITALS: BP 114/64
[2018-06-17 10:55] VITALS: BP 101/59
--- NOTE | 2018-06-17 12:15 | Anesthesia-General Post-Op ---
General Patient Condition Mental Status/LOC: Same as Preop Cardiovascular: Satisfactory Nausea/Vomiting: Absent Respiratory: Satisfactory Pain: Controlled Complications: Absent Post Op Complications Complications None Follow Up Care/Instructions Patient Instructions None needed. Anesthesia/Patient Condition Patient Condition Patient is doing well, no complaints, stable vital signs, no apparent adverse anesthesia problems. No complications reported per nursing. SARI RUIZ CRNA Jun 17, 2018 12:15
--- OUTSIDE RECORDS SUMMARY | 2018-06-19 05:53 | XMS REPORT ---
Author Author REJI PALACIOS [facility] Address [address] [place], [place] [id number] Care Team Providers Care Core Driller Name Role Phone REJI PALACIOS PCP REJI PALACIOS PreferredProvider Allergies and Adverse Reactions Name Reaction [...] 24 hours prednisone 20 mg oral tablet 04/21/2018 4 x 2 days, 3 x 2 days, 2 x 2 days 1 x 2 days Name Start Date Expiration Date SIG Comments Bactrim DS 800-160 mg oral tablet 11/09/2017 12/09/2017 take 1 tablet by oral route 2 times a day for 30 days Suphedrine 30 mg oral tablet 04/21/2018 04/21/2018 take 1-2 tablets by oral route every 4 hours as needed Discontinued Name Start Date Discontinued Date SIG [...] HC BMI BSA BMI Percentile O2 Sat(%) 04/21/2018 8:28:00 AM 122 mmHg 70 mmHg 82 bpm 18 rpm 98.2 F 150 lbs 68 in 22.8072 kg/m 1.8068 m 98 % 12/16/2017 1:57:00 PM 106 mmHg 60 mmHg 70 bpm 18 rpm 98.6 F 148 lbs 68 in 22.50 kg/m2 1.79 m2 100 % 12/07/2017 3:20:00 PM 88 mmHg 50 mmHg 150 bpm 18 rpm 101.8 F 141 lbs 65 in 23.4634 kg/m 1.7126 m 98 % 11/09/2017 3:44:00 PM 118 mmHg 64 mmHg 88 bpm 18 rpm 97.4 F 151 lbs 68 in 22.96 kg/m2 1.81 m2 98 % 06/14/2017 4:21:00 PM 102 mmHg 70 mmHg 86 bpm 18 rpm 98.7 F 155 lbs 68 in 23.5674 kg/m 1.8366 m 96 % 03/18/2017 3:24:00 PM 118 mmHg [...] SC/IM Reviewed 04/02/2011 12:00 AM Decadron Inj.1mg-([facility]) [facility] #[id number] Reviewed 04/02/2011 12:00 AM Depo-Medrol 80 Mg Im/[facility] Trevon [facility] [id number] Reviewed 04/02/2011 12:00 AM Rocephin, Per 250MG - 1 Gram Vial [facility] [id number] Paul Reviewed 04/24/2016 12:00 AM THER/PROPH/DIAG INJ [...] 06/14/2017 12:00 AM Depo-Medrol 80mg Injection Reviewed 11/09/2017 12:00 AM THER/PROPH/DIAG INJ SC/IM Reviewed 11/09/2017 12:00 AM Decadron 8mg Injection Reviewed 11/09/2017 12:00 AM Depo-Medrol 80mg Injection Reviewed 11/07/2012 12:00 AM THER/PROPH/DIAG INJ SC/IM Reviewed 11/07/2012 12:00 AM Decadron, Per 1 Mg [facility]# [id number] Reviewed 11/07/2012 12:00 AM Depo-Medrol, Per 80 Mg [facility]#2647-5445-39 Reviewed 11/07/2012 12:00 AM Rocephin 1 gram [facility]#4253-6691-88 Reviewed 04/21/2018 12:00 AM THER/PROPH/DIAG INJ SC/IM Reviewed 04/21/2018 12:00 AM Decadron 8mg Injection Reviewed 04/21/2018 12:00 AM Depo-Medrol 80mg Injection Reviewed Results Summary Not available. History Of [...] 3:45PM Sinus headache Nov 09 2017 3:45PM [place] Dec 07 2017 3:28PM History of tick-borne disease Dec 07 2017 3:28PM Fever of unknown origin (FUO) Dec 07 2017 3:28PM Erythematous rash Dec 07 2017 3:28PM Tachycardia Dec 07 2017 3:28PM Hospitalization within last 30 days Dec 16 2017 1:57PM [place], unspecified Dec 16 2017 1:57PM Sepsis, unspecified organism Dec 16 2017 1:57PM Purulent postnasal drainage Apr 21 2018 8:31AM Upper respiratory tract infection, unspecified type Apr 21 2018 8:31AM Severe Acute Recurrent Sinus pressure Apr 21 2018 8:31AM Payers Insurance Name Company Name Plan Name Plan Number Policy Number Policy Group Number Start Date [facility] [id number] Tuesday, 2016 [employer] [id number] N/A [facility] [id number] N/A History of Encounters Visit Date Visit Type Provider 04/21/2018 Office visit REJI HART 12/16/2017 Office visit REJI HART 12/07/2017 [facility] 12/07/2017 Office visit REJI HART 11/09/2017 Office visit REJI AHRT 06/14/2017 Voided REJI HART 06/14/2017 Office visit REJI PALACIOS PA 03/18/2017 Office visit REJI PALACIOS PA 04/24/2016 Office visit REJI PALACIOS PA 11/07/2012 Office visit REJI PALACIOS PA 11/19/2011 Office visit REJI PALACIOS PA 04/02/2011 Office visit REJI PALACIOS PA 03/04/2009 Office visit Reji Palacios PA-C 03/01/2009 Office visit Reji BRISCOEC
--- OUTSIDE RECORDS SUMMARY | 2018-06-19 05:54 | XMS REPORT ---
Author Author REJI PALACIOS [facility] Address [address] [place], [place] [phone] Care Team Providers Care Marker Shipments Name Role Phone REJI PALACIOS PCP REJI [...] 24 hours prednisone 20 mg oral tablet 11/09/2017 4 x 2 days, 3 x 2 days, 2 x 2 days 1 x 2 days Name Start Date Expiration Date SIG Comments Bactrim DS 800-160 mg oral tablet 11/09/2017 12/09/2017 take 1 tablet by oral route 2 times a day for 30 days Discontinued Name Start Date Discontinued Date [...] HC BMI BSA BMI Percentile O2 Sat(%) 12/16/2017 1:57:00 PM 106 mmHg 60 mmHg 70 bpm 18 rpm 98.6 F 148 lbs 68 in 22.5031 kg/m 1.7947 m 100 % 12/07/2017 3:20:00 PM 88 mmHg 50 mmHg 150 bpm 18 rpm 101.8 F 141 lbs 65 in 23.46 kg/m2 1.71 m2 98 % 11/09/2017 3:44:00 PM 118 mmHg [...] SC/IM Reviewed 04/02/2011 12:00 AM Decadron Inj.1mg-([facility]) [facility] #[id number] Reviewed 04/02/2011 12:00 AM Depo-Medrol 80 Mg Im/St Trevon [facility] [id number] Reviewed 04/02/2011 12:00 AM Rocephin, Per 250MG - 1 Gram Vial [facility] [id number] Paul Reviewed 04/24/2016 12:00 AM THER/PROPH/DIAG INJ [...] 11/07/2012 12:00 AM Decadron, Per 1 Mg [facility]# [address]-27 Reviewed 11/07/2012 12:00 AM Depo-Medrol, Per 80 Mg [facility]#0500-0401-28 Reviewed 11/07/2012 12:00 AM Rocephin 1 gram [facility]#9850-0781-83 Reviewed Results Summary Not available. History Of [...] Sepsis, unspecified organism Dec 16 2017 1:57PM Payers Insurance Name Company Name Plan Name Plan Number Policy Number Policy Group Number Start Date [employer] [facility] [id number] Tuesday, 2016 [employer] [id number] N/A [employer] [facility] [id number] N/A History of Encounters Visit Date Visit Type Provider 12/16/2017 Office visit REJI HART 12/07/2017 Hospital Tyrese Billy MD 12/07/2017 Office visit REJI HART 11/09/2017 Office visit REJI HART 06/14/2017 Voided REJI HART 06/14/2017 Office visit REJI HART 03/18/2017 Office visit REJI HART 04/24/2016 Office visit REJI HART 11/07/2012 Office visit REJI HART 11/19/2011 Office visit REJI HART 04/02/2011 Office visit REJI HART 03/04/2009 Office visit Reji Palacios PA-C 03/01/2009 Office visit Reji Palacios PA-C
--- OUTSIDE RECORDS SUMMARY | 2018-06-19 05:54 | XMS REPORT ---
Author Author REJI RODRÍGUEZ [facility] Address [address] [place], [place] [address] Care Team Providers Care General Superintendent Name Role Phone REJI RODRÍGUEZ PCP REJI [...] HC BMI BSA BMI Percentile O2 Sat(%) 12/07/2017 3:20:00 PM 88 mmHg 50 mmHg [...] SC/IM Reviewed 04/02/2011 12:00 AM Decadron Inj.1mg-([facility]) [facility] #[id number] Reviewed 04/02/2011 12:00 AM Depo-Medrol 80 Mg Im/St Trevon [facility] [id number] Reviewed 04/02/2011 12:00 AM Rocephin, Per 250MG - 1 Gram Vial [facility] [id number] Paul Reviewed 04/24/2016 12:00 AM THER/PROPH/DIAG INJ [...] 11/07/2012 12:00 AM Decadron, Per 1 Mg [facility]# [address]-58 Reviewed 11/07/2012 12:00 AM Depo-Medrol, Per 80 Mg [facility]#4673-5342-42 Reviewed 11/07/2012 12:00 AM Rocephin 1 gram [facility]#8600-6870-94 Reviewed Results Summary Not available. History Of [...] 2017 3:28PM Tachycardia Dec 07 2017 3:28PM Payers Insurance Name Company Name Plan Name Plan Number Policy Number Policy Group Number Start Date [employer] [facility] [id number] Tuesday, 2016 [employer] [id number] N/A [employer] [facility] [id number] N/A History of Encounters Visit Date Visit Type Provider 12/07/2017 Office visit REJI HART 11/09/2017 Office visit REJI HART 06/14/2017 Voided REJI HART 06/14/2017 Office visit REJI HART 03/18/2017 Office visit REJI HART 04/24/2016 Office visit REJI HART 11/07/2012 Office visit REJI HART 11/19/2011 Office visit REJI HART 04/02/2011 Office visit REJI HART 03/04/2009 Office visit Reji Rodríguez PA-C 03/01/2009 Office visit Reji Rodríguez PA-C
--- OUTSIDE RECORDS SUMMARY | 2018-06-19 05:55 | XMS REPORT | Continuity of Care Document ---
Author Author [facility] Address Unknown Phone Unavailable Allergies Active Description Code Type Severity Reaction Onset Reported/Identified Relationship to Patient Clinical Status Yes No Known Drug Allergies [id number] Drug Allergy Unknown N/A 06/17/2018 Medications There is no data. Problems Date Dx Coded Attending Type Code Diagnosis Diagnosed By 11/26/2017 Ot A68.1 TICK-BORNE RELAPSING FEVER 11/26/2017 Ot B34.9 VIRAL INFECTION, UNSPECIFIED 11/26/2017 Ot R50.9 FEVER, UNSPECIFIED 11/26/2017 Ot Z79.52 INTERMEDIATE ( CURRENT) USE OF SYSTEMIC STER 05/11/2018 DENIA CALVILLO MD Ot J32.4 CHRONIC PANSINUSITIS 05/24/2018 DENIA CALVILLO MD Ot J32.4 CHRONIC PANSINUSITIS 06/02/2018 DENIA CALVILLO MD Ot J32.4 CHRONIC PANSINUSITIS 06/07/2018 DENIA CALVILLO MD Ot J32.4 CHRONIC PANSINUSITIS 06/14/2018 DENIA CALVILLO MD Ot Z01.818 ENCOUNTER FOR OTHER PREPROCEDURAL EXAMIN Procedures There is no data. Results Test Result Range Streptococcus pyogenes antigen detection - 11/26/17 15:38 Streptococcus pyogenes antigen detection NEGATIVE NEGATIVE Complete blood count (CBC) with automated white blood cell (WBC) differential - 11/26/17 15:45 Blood leukocytes automated count (number/volume) 2.5 10*3/uL 4.3-11.0 Blood erythrocytes automated count (number/volume) 4.75 10*6/uL 4.35-5.85 Venous blood hemoglobin measurement (mass/volume) 14.7 g/dL 13.3-17.7 Blood hematocrit (volume fraction) 42 % 40-54 Automated erythrocyte mean corpuscular volume 88 [foz_us] 80-99 Automated erythrocyte mean corpuscular hemoglobin (mass per erythrocyte) 31 pg 25-34 Automated erythrocyte mean corpuscular hemoglobin concentration measurement ( mass/volume) 35 g/dL 32-36 Automated erythrocyte distribution width ratio 12.8 % 10.0-14.5 Automated blood platelet count (count/volume) 48 10*3/uL 130-400 Automated blood platelet mean volume measurement 12.9 [foz_us] 7.4-10.4 Automated blood neutrophils/100 leukocytes 59 % 42-75 Automated blood lymphocytes/100 leukocytes 30 % 12-44 Blood monocytes/100 leukocytes 9 % 0-12 Automated blood eosinophils/100 leukocytes 2 % 0-10 Automated blood basophils/100 leukocytes 1 % 0-10 Blood neutrophils automated count (number/volume) 1.5 10*3 1.8-7.8 Blood lymphocytes automated count (number/volume) 0.7 10*3 1.0-4.0 Blood monocytes automated count (number/volume) 0.2 10*3 0.0-1.0 Automated eosinophil count 0.0 10*3/uL 0.0-0.3 Automated blood basophil count (count/volume) 0.0 10*3/uL 0.0-0.1 Blood lactic acid measurement (moles/volume) - 11/26/17 15:45 Blood lactic acid measurement (moles/volume) 1.58 mmol/L 0.50-2.00 Comprehensive metabolic panel - 11/26/17 15:45 Serum or plasma sodium measurement (moles/volume) 134 mmol/L 135-145 Serum or plasma potassium measurement (moles/volume) 3.9 mmol/L 3.6-5.0 Serum or plasma chloride measurement (moles/volume) 98 mmol/L 98-107 Carbon dioxide 26 mmol/L 21-32 Serum or plasma anion gap determination (moles/volume) 10 mmol/L 5-14 Serum or plasma urea nitrogen measurement (mass/volume) 14 mg/dL 7-18 Serum or plasma creatinine measurement (mass/volume) 0.81 mg/dL 0.60-1.30 Serum or plasma urea nitrogen/creatinine mass ratio 17 NRG Serum or plasma creatinine measurement with calculation of estimated glomerular filtration rate > NRG Serum or plasma glucose measurement (mass/volume) 110 mg/dL 70-105 Serum or plasma calcium measurement (mass/volume) 8.6 mg/dL 8.5-10.1 Serum or plasma total bilirubin measurement (mass/volume) 0.6 mg/dL 0.1-1.0 Serum or plasma alkaline phosphatase measurement (enzymatic activity/volume) 79 U/L 40-136 Serum or plasma aspartate aminotransferase measurement (enzymatic activity/ volume) 212 U/L 5-34 Serum or plasma alanine aminotransferase measurement (enzymatic activity/volume ) 199 U/L 0-55 Serum or plasma protein measurement (mass/volume) 6.6 g/dL 6.4-8.2 Serum or plasma albumin measurement (mass/volume) 3.8 g/dL 3.2-4.5 CALCIUM CORRECTED 8.8 mg/dL 8.5-10.1 PT panel in platelet poor plasma by coagulation assay - 11/26/17 15:45 Prothrombin time (PT) in platelet poor plasma by coagulation assay 14.6 s 12.2-14.7 INR in platelet poor plasma or blood by coagulation assay 1.1 0.8-1.4 Activated partial thromboplastin time (aPTT) in platelet poor plasma bycoagulation assay - 11/26/17 15:45 Activated partial thromboplastin time (aPTT) in platelet poor plasma bycoagulation assay 41 s 24-35 Complete urinalysis with reflex to culture - 11/26/17 16:00 Urine color determination YELLOW NRG Urine clarity determination CLEAR NRG Urine pH measurement by test strip 6 5-9 Specific gravity of urine by test strip 1.015 1.016- 1.022 Urine protein assay by test strip, semi-quantitative 2+ NEGATIVE Urine glucose detection by automated test strip NEGATIVE NEGATIVE Erythrocytes detection in urine sediment by light microscopy 2+ NEGATIVE Urine ketones detection by automated test strip NEGATIVE NEGATIVE Urine nitrite detection by test strip NEGATIVE NEGATIVE Urine total bilirubin detection by test strip 1+ NEGATIVE Urine urobilinogen measurement by automated test strip (mass/volume) 8 mg/dL NORMAL Urine leukocyte esterase detection by dipstick 1+ NEGATIVE Automated urine sediment erythrocyte count by microscopy (number/high power field) [HPF] NRG Automated urine sediment leukocyte count by microscopy (number/high power field ) RARE NRG Bacteria detection in urine sediment by light microscopy NEGATIVE NRG Crystals detection in urine sediment by light microscopy NONE NRG Casts detection in urine sediment by light microscopy NONE NRG Mucus detection in urine sediment by light microscopy NEGATIVE NRG Complete urinalysis with reflex to culture NO NRG Complete blood count (CBC) with automated white blood cell (WBC) differential - 06/17/18 06:25 Blood leukocytes automated count (number/volume) 7.8 10*3/uL 4.3-11.0 Blood erythrocytes automated count (number/volume) 5.15 10*6/uL 4.35-5.85 Venous blood hemoglobin measurement (mass/volume) 15.9 g/dL 13.3-17.7 Blood hematocrit (volume fraction) 46 % 40-54 Automated erythrocyte mean corpuscular volume 89 [foz_us] 80-99 Automated erythrocyte mean corpuscular hemoglobin (mass per erythrocyte) 31 pg 25-34 Automated erythrocyte mean corpuscular hemoglobin concentration measurement ( mass/volume) 35 g/dL 32-36 Automated erythrocyte distribution width ratio 12.7 % 10.0-14.5 Automated blood platelet count (count/volume) 191 10*3/uL 130-400 Automated blood platelet mean volume measurement 11.2 [foz_us] 7.4-10.4 Automated blood neutrophils/100 leukocytes 30 % 42-75 Automated blood lymphocytes/100 leukocytes 43 % 12-44 Blood monocytes/100 leukocytes 7 % 0-12 Automated blood eosinophils/100 leukocytes 20 % 0-10 Automated blood basophils/100 leukocytes 1 % 0-10 Blood neutrophils automated count (number/volume) 2.3 10*3 1.8-7.8 Blood lymphocytes automated count (number/volume) 3.3 10*3 1.0-4.0 Blood monocytes automated count (number/volume) 0.6 10*3 0.0-1.0 Automated eosinophil count 1.5 10*3/uL 0.0-0.3 Automated blood basophil count (count/volume) 0.1 10*3/uL 0.0-0.1 Whole blood basic metabolic panel - 06/17/18 06:25 Serum or plasma sodium measurement (moles/volume) 141 mmol/L 135-145 Serum or plasma potassium measurement (moles/volume) 3.7 mmol/L 3.6-5.0 Serum or plasma chloride measurement (moles/volume) 102 mmol/L 98-107 Carbon dioxide 28 mmol/L 21-32 Serum or plasma anion gap determination (moles/volume) 11 mmol/L 5-14 Serum or plasma urea nitrogen measurement (mass/volume) 19 mg/dL 7-18 Serum or plasma creatinine measurement (mass/volume) 0.86 mg/dL 0.60-1.30 Serum or plasma urea nitrogen/creatinine mass ratio 22 NRG Serum or plasma creatinine measurement with calculation of estimated glomerular filtration rate > NRG Serum or plasma glucose measurement (mass/volume) 84 mg/dL 70-105 Serum or plasma calcium measurement (mass/volume) 9.8 mg/dL 8.5-10.1 Blood manual differential performed detection - 06/17/18 06:25 Blood monocytes/100 leukocytes 11 % NRG Manual blood segmented neutrophils/100 leukocytes 34 % NRG Manual blood lymphocytes/100 leukocytes 42 % NRG Manual eosinophils/100 leukocytes in nose 13 % NRG Encounters ACCT No. Visit Date/Time Discharge Status Pt. Type Provider Facility Loc./Unit Complaint [id number] 04/21/2018 08:56:12 04/21/2018 23:59:59 CLS Outpatient DENIA PALACIOS [id number] 12/16/2017 16:33:49 12/16/2017 23:59:59 CLS Outpatient Wenceslao Tyrese [id number] 12/16/2017 14:26:17 12/16/2017 23:59:59 CLS Outpatient DENIA PALACIOS [id number] 11/09/2017 14:44:38 11/09/2017 23:59:59 CLS Outpatient DENIA PALACIOS [id number] 06/14/2017 14:35:04 06/14/2017 23:59:59 CLS Outpatient DENIA PALACIOS [id number] 06/14/2017 14:28:18 06/14/2017 23:59:59 CLS Outpatient DENIA PALACIOS [id number] 03/18/2017 14:28:17 03/18/2017 23:59:59 CLS Outpatient DENIA PALACIOS [id number] 04/24/2016 10:21:38 04/24/2016 23:59:59 CLS Outpatient DENIA PALACIOS [id number] 06/05/2017 11:25:00 06/05/2017 23:59:59 CLS Outpatient [facility] [id number] 06/17/2018 05:45:00 06/17/2018 11:05:00 DIS Outpatient DENIA CALVILLO MD [facility] CHRONIC SINUSITIS DEVIATED SEPTUM, HYPERTROPHY T [id number] 06/13/2018 05:34:00 06/13/2018 12:33:00 DIS Outpatient DENIA CALVILLO MD [facility] PREOP CHRONIC SINUSITIS [id number] 05/10/2018 07:25:00 05/10/2018 23:59:59 CLS Outpatient KARLI ADAMS, DENIA Gomez [facility] RAD CHRONIC SINUS [id number] 11/26/2017 16:11:00 Document Registration
== END 2018-06-17 11:05 | disposition home or self-care (01) ==
LOC: SDC 05:45
PROVIDERS: ATTEND Otolaryngology Otolaryngology/Facial Plastic Surgery
DX: J32.0 Chronic maxillary sinusitis (principal); J32.1 Chronic frontal sinusitis; J32.2 Chronic ethmoidal sinusitis; J32.3 Chronic sphenoidal sinusitis; J34.2 Deviated nasal septum; J34.3 Hypertrophy of nasal turbinates
CPT/HCPCS: 36415; 80048; 85007; 85027; 87081

== ENCOUNTER 2018-07-07 20:25 | Emergency (ER) | payer BC ==
[~2018-07-07] VITALS: Ht 172.7 cm; Wt 63.5 kg
[~2018-07-07 20:25] MED LIST changes: +AMOX-355 PO; +HYDR-3870 PO
--- OUTSIDE RECORDS SUMMARY | 2018-07-07 20:30 | XMS REPORT | Continuity of Care Document ---
Author Author [facility] Address Unknown Phone Unavailable Allergies Active Description Code Type Severity Reaction Onset Reported/Identified Relationship to Patient Clinical Status Yes No Known Drug Allergies [id number] Drug Allergy Unknown N/A 06/17/2018 Medications There is no data. Problems Date Dx Coded Attending Type Code Diagnosis Diagnosed By 11/26/2017 Ot A68.1 TICK-BORNE RELAPSING FEVER 11/26/2017 Ot B34.9 VIRAL INFECTION, UNSPECIFIED 11/26/2017 Ot R50.9 FEVER, UNSPECIFIED 11/26/2017 Ot Z79.52 FDC ( CURRENT) USE OF SYSTEMIC STER 05/11/2018 DENIA CALVILLO MD Ot J32.4 CHRONIC PANSINUSITIS 05/24/2018 DENIA CALVILLO MD Ot J32.4 CHRONIC PANSINUSITIS 06/02/2018 DENIA CALVILLO MD Ot J32.4 CHRONIC PANSINUSITIS 06/07/2018 DENIA CALVILLO MD Ot J32.4 CHRONIC PANSINUSITIS 06/14/2018 DENIA CALVILLO MD Ot Z01.818 ENCOUNTER FOR OTHER PREPROCEDURAL EXAMIN 06/17/2018 DENIA CALVILLO MD Ot J32.0 CHRONIC MAXILLARY SINUSITIS 06/17/2018 DENIA CALVILLO MD Ot J32.1 CHRONIC FRONTAL SINUSITIS 06/17/2018 DENIA CALVILLO MD Ot J32.2 CHRONIC ETHMOIDAL SINUSITIS 06/17/2018 DENIA CALVILOL MD Ot 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 Results Test [...] eosinophils/100 leukocytes in nose 13 % NRG Methicillin resistant Staphylococcus aureus (MRSA) screening culture - 06:25 Methicillin resistant Staphylococcus aureus (MRSA) screening culture NEG NRG Encounters ACCT No. Visit Date/Time Discharge Status Pt. Type Provider Facility Loc./Unit Complaint [id number] 04/21/2018 08:56:12 04/21/2018 23:59:59 CLS Outpatient DENIA PALACIOS [id number] 12/16/2017 16:33:49 12/16/2017 23:59:59 CLS Outpatient Tyrese Billy [id number] 12/16/2017 14:26:17 12/16/2017 23:59:59 CLS Outpatient DENIA PALACIOS [id number] 11/09/2017 14:44:38 11/09/2017 23:59:59 CLS Outpatient PHILIPDENIA CHATMAN [id number] 06/14/2017 14:35:04 06/14/2017 23:59:59 CLS Outpatient PHILIP DENIA Cabrera [id number] 06/14/2017 14:28:18 06/14/2017 23:59:59 CLS Outpatient PHILIP DENIA Cabrera [id number] 03/18/2017 14:28:17 03/18/2017 23:59:59 CLS Outpatient PHILIPDENIA CHATMAN [id number] 04/24/2016 10:21:38 04/24/2016 23:59:59 CLS Outpatient DENIA PALACIOS [id number] 06/05/2017 11:25:00 06/05/2017 23:59:59 CLS Outpatient [facility] [id number] 06/17/2018 05:45:00 06/17/2018 11:05:00 DIS Outpatient DENIA CALVILLO MD [facility] SDC CHRONIC SINUSITIS DEVIATED SEPTUM, HYPERTROPHY T [id number] 06/13/2018 05:34:00 06/13/2018 12:33:00 DIS Outpatient DENIA CALVILLO MD [facility] PREOP CHRONIC SINUSITIS [id number] 05/10/2018 07:25:00 05/10/2018 23:59:59 CLS Outpatient DENIA CALVILLO MD [facility] RAD CHRONIC SINUS [id number] 07/07/2018 20:26:00 ACT Emergency VIRGINIA HERRON MD [facility] ER ASTHMA ATTACK [id number] 11/26/2017 16:11:00 Document Registration
--- NOTE | 2018-07-07 20:46 | NUR ---
NOTIFIED NURSE STACIE WHEN PT ARRIVED ABOUT ASTHMA ATTACK AND SOB
[2018-07-07] MEDS ORDERED: RT-ALBUTEROL/IPRATROPIUM 3 ML (DUONEB) VIAL ONE (20:51)
[2018-07-07] MEDS ORDERED: RT-ALBUTEROL SULF 2.5 MG/3 ML PRE-MIX VIAL INH SCH (21:00)
[2018-07-07] MEDS ORDERED: methylPREDNISolone 125 MG (Solu-MEDROL) VIAL IVP ONE (21:00)
[2018-07-07] MEDS ORDERED: RT-ALBUTEROL/IPRATROPIUM 3 ML (DUONEB) VIAL INH ONE (21:00)
--- NOTE | 2018-07-07 21:00 | ED Cough/URI ---
General Chief Complaint: Respiratory Problems Stated Complaint: ASTHMA ATTACK Source: patient Exam Limitations: no limitations History of Present Illness Date Seen by Provider: Jul 07, 2018 Time Seen by Provider: 20:58 Initial Comments Once and with to ER with reports of an asthma attack. He has known asthma. He takes an albuterol inhaler, symptoms began earlier today. No fevers no chills. Timing/Duration: this afternoon Severity/Quality: severe, dry cough Prior Episodes/Possible Cause: occasional episodes Associated Symptoms: cough, wheezing Allergies and Home Medications Allergies Coded Allergies: No Known Drug Allergies (Unverified , 06/17/18) Home Medications Albuterol Sulfate 1 Puff Puff, 2 PUFF IH BID PRN for SHORTNESS OF BREATH, ( Reported) 1 PUFF = 90 MCG Amoxicillin/Potassium Clav 1 Each Tablet, 1 EACH PO BID Prescribed by: DOV VALDIVIA on 06/17/18 1013 Hydrocodone/Acetaminophen 1 Each Tablet, 1-2 EACH PO Q4H PRN for PAIN-MODERATE Prescribed by: DOV VALDIVIA on 06/17/18 1013 Prednisone 20 Mg Tab, 20 MG PO DAILY Take 2 tabs (40mg) daily for 3 days, decrease to 1 tab (20mg) daily for 3 days. Prescribed by: DOV VALDIVIA on 06/17/18 1013 Patient Home Medication List Home Medication List Reviewed: Yes Review of Systems Review of Systems Constitutional: see HPI EENTM: see HPI Respiratory: see HPI, wheezing Cardiovascular: no symptoms reported Genitourinary: no symptoms reported Musculoskeletal: no symptoms reported Skin: see HPI Psychiatric/Neurological: No Symptoms Reported Hematologic/Lymphatic: No Symptoms Reported Past Ehhwofa-Sbnseg-Ryabqw Hx Patient Social History 2nd Hand Smoke Exposure: Yes Recent Foreign Travel: No Contact w/Someone Who Travel: No Recent Hopitalizations: No Seasonal Allergies Seasonal Allergies: Yes Past Medical History Surgeries: No Respiratory: No Cardiac: No Neurological: Yes Headaches /Migraines Sexually Transmitted Disease: No HIV/AIDS: No Genitourinary: No Gastrointestinal: No Musculoskeletal: No Endocrine: No HEENT: No Loss of Vision: Denies Hearing Impairment: Denies Cancer: No Psychosocial: No Integumentary: No Blood Disorders: No Adverse Reaction/Blood Tranf: No (N/A) Physical Exam Vital Signs - First Documented 07/07/18 20:59 Temp 98.3 Pulse 97 Resp 24 B/P (MAP) 120/78 (92) Pulse Ox 100 O2 Delivery Room Air Capillary Refill : Height: 5'8.00" Weight: 135lbs. 4.0oz. 61.958785lp; 20.6 BMI Method:Stated General Appearance: WD/WN, moderate distress, other (tachypneic and audibly wheezing. 84% on room air.) Eyes: Bilateral Eye Normal Inspection, Bilateral Eye PERRL HEENT: PERRL/EOMI, normal ENT inspection Neck: non-tender, full range of motion Respiratory: no respiratory distress, no accessory muscle use, wheezing Gastrointestinal: normal bowel sounds, non tender, soft Neurologic/Psychiatric: alert, normal mood/affect, oriented x 3 Skin: normal color, warm/dry Progress/Results/Core Measures Suspected Sepsis SIRS Temperature: Pulse: Respiratory Rate: Laboratory Tests 07/07/18 20:54: White Blood Count 8.0 Blood Pressure / Mean: Laboratory Tests 07/07/18 20:54: Creatinine 0.89, Platelet Count 223, Total Bilirubin 0.4 Results/Orders Lab Results Laboratory Tests Test 07/07/18 20:54 Range/Units White Blood Count 8.0 4.3-11.0 10^3/uL Red Blood Count 5.00 4.35-5.85 10^6/uL Hemoglobin 15.6 13.3-17.7 G/DL Hematocrit 44 40-54 % Mean Corpuscular Volume 89 80-99 FL Mean Corpuscular Hemoglobin 31 25-34 PG Mean Corpuscular Hemoglobin Concent 35 32-36 G/DL Red Cell Distribution Width 12.6 10.0-14.5 % Platelet Count 223 130-400 10^3/uL Mean Platelet Volume 11.2 H 7.4-10.4 FL Neutrophils (%) (Auto) 50 42-75 % Lymphocytes (%) (Auto) 30 12-44 % Monocytes (%) (Auto) 6 0-12 % Eosinophils (%) (Auto) 14 H 0-10 % Basophils (%) (Auto) 1 0-10 % Neutrophils # (Auto) 4.0 1.8-7.8 X 10^3 Lymphocytes # (Auto) 2.4 1.0-4.0 X 10^3 Monocytes # (Auto) 0.5 0.0-1.0 X 10^3 Eosinophils # (Auto) 1.1 H 0.0-0.3 10^3/uL Basophils # (Auto) 0.0 0.0-0.1 10^3/uL Sodium Level 143 135-145 MMOL/L Potassium Level 3.7 3.6-5.0 MMOL/L Chloride Level 105 98-107 MMOL/L Carbon Dioxide Level 26 21-32 MMOL/L Anion Gap 12 5-14 MMOL/L Blood Urea Nitrogen 15 7-18 MG/DL Creatinine 0.89 0.60-1.30 MG/DL Estimat Glomerular Filtration Rate > 60 BUN/Creatinine Ratio 17 Glucose Level 98 70-105 MG/DL Calcium Level 9.7 8.5-10.1 MG/DL Corrected Calcium 9.3 8.5-10.1 MG/DL Magnesium Level 2.5 H 1.8-2.4 MG/DL Total Bilirubin 0.4 0.1-1.0 MG/DL Aspartate Amino Transf (AST/SGOT) 25 5-34 U/L Alanine Aminotransferase (ALT/SGPT) 18 0-55 U/L Alkaline Phosphatase 50 40-136 U/L Total Protein 7.2 6.4-8.2 GM/DL Albumin 4.5 3.2-4.5 GM/DL My Orders Orders - CECI VASQUEZ CAR STARTER Cbc With Automated Diff (07/07/18 20:56) Comprehensive Metabolic Panel (07/07/18 20:56) Iv Heplock-Insert (Order) (07/07/18 20:56) Magnesium (07/07/18 20:56) Chest 1 View, Ap/Pa Only (07/07/18 20:56) Methylprednisolone Sod Succ (Solu-Medrol (07/07/18 21:00) Albuterol/Ipra Inhalation Soln (Duoneb I (07/07/18 21:00) Albuterol Pre-Mix Nebs (Rt) (Proventil (07/07/18 21:00) Svn Small Volume Nebulizer (07/07/18 20:56) Svn Small Volume Nebulizer (07/07/18 20:56) Rx-Albuterol Nebs (Rx-Proventil Nebs) (07/07/18 22:35) Medications Given in ED Current Medications Medications Dose Ordered Sig/Rashard Route Start Time Stop Time Status Last Admin Dose Admin Albuterol/ Ipratropium 3 ml ONCE ONCE INH 07/07/18 21:00 07/07/18 21:01 DC 07/07/18 20:58 3 ML Methylprednisolone Sodium Succinate 125 mg ONCE ONCE IVP 07/07/18 21:00 07/07/18 21:01 DC 07/07/18 21:12 125 MG Vital Signs/I&O 07/07/18 07/07/18 07/07/18 20:59 20:59 21:10 Temp 98.3 Pulse 97 Resp 24 B/P (MAP) 120/78 (92) Pulse Ox 100 100 O2 Delivery Room Air Room Air Capillary Refill : Departure Communication (Admissions) 2199-he states that he feels much better, he just completed his breathing treatment his oxygen saturation is 98% but again he just completed his breathing treatment on oxygen. He is no longer wheezy at all. He was audibly wheezy on arrival. Turned off the breathing treatment and will observe for about 30 minutes. If no hypoxia we will discharge to home with nebulized albuterol and steroids. If He becomes again hypoxic will admit. 2232- states he is feeling much better, oxygen saturation has remained in the 93 -97% range, no wheezing. He has a nebulizer and supplies for that at home. We' ll discharge to home with return precautions. Impression Primary Impression: Asthma exacerbation Qualified Codes: J45.901 - Unspecified asthma with (acute) exacerbation Additional Impression: Hypoxia Disposition: ADMITTED INPATIENT Condition: Stable Admissions Decision to Admit Reason: Admit from ER (General) Decision to Admit/Date: Jul 07, 2018 Time/Decision to Admit Time: 21:00 Departure-Patient Inst. Decision time for Depature: 22:33 Referrals: NO,LOCAL PHYSICIAN (PCP) Primary Care Physician DENIA PALACIOS (Family) Primary Care Physician Patient Instructions: Asthma, Adult (DC) Add. Discharge Instructions: 1. One breathing treatment every 4 hours as needed for wheezing. Return to ER for any worsening. All discharge instructions reviewed with patient and/or family. Voiced understanding. Scripts Prednisone (Prednisone) 10 Mg Tab.ds.pk 10 MG PO DAILY, #21 EA Take 6 tabs(60mg)daily,decrease by 1 tab(10MG)daily. Prov: CECI VASQUEZ CAR STARTER 07/07/18 Albuterol Sulfate (Albuterol Sulfate) 2.5 Mg/3 Ml Vial.neb 2.5 MG INH Q4H PRN for WHEEZING, #25 EA Prov: CECI VASQUEZ APRN 07/07/18 Work/School Note: Work Release Form Date Seen in the Emergency Department: Jul 07, 2018 Return to Work: Jul 09, 2018 CECI VASQUEZ APRN Jul 07, 2018 21:00
[2018-07-07 21:13] LABS: BASOPHILS % (AUTO) 1 % (0-10); EOSINOPHILS # (AUTO) 1.1 10^3/uL (0.0-0.3); EOSINOPHILS % (AUTO) 14 % (0-10); HEMATOCRIT 44 % (40-54); HEMOGLOBIN 15.6 G/DL (13.3-17.7); LYMPHOCYTES # (AUTO) 2.4 X 10^3 (1.0-4.0); LYMPHOCYTES % (AUTO) 30 % (12-44); MEAN CORPUSCULAR HEMOGLOBIN 31 PG (25-34); MEAN CORPUSCULAR HGB CONC 35 G/DL (32-36); MEAN CORPUSCULAR VOLUME 89 FL (80-99); MEAN PLATELET VOLUME 11.2 FL (7.4-10.4); MONOCYTES # (AUTO) 0.5 X 10^3 (0.0-1.0); MONOCYTES % (AUTO) 6 % (0-12); NEUTROPHILS % (AUTO) 50 % (42-75); PLATELET COUNT 223 10^3/uL (130-400); RED CELL DISTRIBUTION WIDTH 12.6 % (10.0-14.5)
--- NOTE | 2018-07-07 21:27 | Diagnostic Imaging Report ---
CHEST 1 VIEW, AP/PA ONLY Indication: Wheezing Comparison: 11/26/2017 Findings: No focal airspace disease in the visualized lungs. Please note that the posterior lower lobes are poorly evaluated by portable radiography. No pleural effusion or pneumothorax. Normal cardiomediastinal silhouette. Impression: No acute cardiopulmonary process by portable radiography. Dictated by: Dictated on workstation # [id number]
[2018-07-07 21:34] LABS: ALANINE AMINOTRANSFERASE 18 U/L (0-55); ALBUMIN 4.5 GM/DL (3.2-4.5); ALKALINE PHOSPHATASE 50 U/L (40-136); BILIRUBIN,TOTAL 0.4 MG/DL (0.1-1.0); BUN/CREATININE RATIO 17; CALCIUM 9.7 MG/DL (8.5-10.1); CARBON DIOXIDE 26 MMOL/L (21-32); CHLORIDE 105 MMOL/L (98-107); CREATININE SERUM 0.89 MG/DL (0.60-1.30); GFR ESTIMATED > 60; GLUCOSE 98 MG/DL (70-105); MAGNESIUM 2.5 MG/DL (1.8-2.4); POTASSIUM 3.7 MMOL/L (3.6-5.0); SODIUM 143 MMOL/L (135-145); TOTAL PROTEIN 7.2 GM/DL (6.4-8.2)
[2018-07-07] MEDS ORDERED: RX-ALBUTEROL NEB 2.5 MG/3 ML PACK #5 IH STA (22:35)
[2018-07-07] MEDS ORDERED: ALBU2.5V4 INH (22:38)
[2018-07-07] MEDS ORDERED: PRED10TA22 PO (22:38)
[2018-07-07 22:44] VITALS: BP 118/82
== END 2018-07-07 22:48 | disposition home or self-care (01) ==
LOC: EDUNIT# 20:25 → ER 20:26
DX: J45.901 Unspecified asthma with (acute) exacerbation (principal); G43.909 Migraine, unspecified, not intractable, without status migrainosus; Z79.51 Long term (current) use of inhaled steroids; Z79.52 Long term (current) use of systemic steroids; Z77.22 Contact with and (suspected) exposure to environmental tobacco smoke (acute) (chronic)
CPT/HCPCS: 36415; 71045; 80053; 83735; 85025; 94640